=== PATIENT | male | born 1950 | race Caucasian/White ===

== ENCOUNTER 2022-08-28 12:01 | Emergency (ER) | payer OTHER, SELFPAY ==
--- NOTE | 2022-08-28 13:05 | EDPHYS ---
Physician Documentation [facility] Name: Edilberto Diaz Age: 71 yrs Sex: Male : 1950 Arrival Date: 08/28/2022 Time: 12:01 Bed 17 Private MD: ED Physician Gallito Rocha HPI: 08/28 13:15 This 71 yrs old Male presents to ER via Wheelchair with complaints of Constipation. kb 13:15 Patient presents for constipation. Last bowel movement 1 week ago. States this happens kb frequently and he has had to come in for disimpaction's in the past. Reports he feels like he needs to go but has been trying for the last few hours and has not been able to have a bowel movement.. Onset: The symptoms/episode began/occurred last week. Severity of symptoms: At their worst the symptoms were moderate in the emergency department the symptoms are unchanged. The patient has experienced similar episodes in the past. The patient has not recently seen a physician. Historical: - Immunization history:: Adult Immunizations unknown. - Social history:: Smoking status: unknown. ROS: 13:15 Constitutional: Negative for fever, chills, and weight loss. kb 13:15 Abdomen/GI: Positive for constipation. 13:15 All other systems are negative. Exam: 13:15 Constitutional: This is a well developed, well nourished patient who is awake, alert, kb and in no acute distress. Head/Face: Normocephalic, atraumatic. ENT: Moist Mucous membranes Cardiovascular: Regular rate and rhythm with a normal S1 and S2. No gallops, murmurs, or rubs. No pulse deficits. Respiratory: Respirations even and unlabored. No increased work of breathing. Talking in full sentences Abdomen/GI: Soft, non-tender. No distention Skin: Warm, dry with normal turgor. Normal color. MS/ Extremity: Pulses equal, no cyanosis. Neurovascular intact. Full, normal range of motion. Neuro: Awake and alert, GCS 15, oriented to person, place, time, and situation. Moves all extremities. Normal gait. Vital Signs: 16:00 BP 130 / 70; Pulse 69; Resp 16; Pulse Ox 97% on R/A; iw 16:37 BP 133 / 75; Pulse 71; Resp 16; Temp 98.1; Pulse Ox 100% on R/A; iw MDM: 12:13 Patient medically screened. kb 13:16 Differential Diagnosis Fecal impaction, constipation, bowel obstruction. Data reviewed: kb vital signs, nurses notes. Test considered but Not performed: CT: CT abdomen considered but patient request to go home after having a successful bowel movement.. Historians other than the Patient: Daughter/Son: Daughter. Counseling: I had a detailed discussion with the patient and/or guardian regarding: the historical points, exam findings, and any diagnostic results supporting the discharge/admit diagnosis, the need for outpatient follow up, a family practitioner, to return to the emergency department if symptoms worsen or persist or if there are any questions or concerns that arise at home. ED course: Patient was able to have a large bowel movement once he got into the room and now request to go home. States he does not want anything else done at this time.. 15:57 ED course: Patient came back to the ER for pain in the rectum. On exam patient has a kb large hard ball of stool at rectum. Digital disimpaction completed with large amounts of stool removed. Rectum with erythema and irritation. No hemorrhoids noted. No abscess felt. Enema ordered as well per family's request.. 17:39 ED course: Pt reported he was ready to go home after second enema, but once he was up kb and dressed reported pressure in his rectum again. CT scan ordered. 17:48 ED course: Pt refuses CT scan and would rather go home. Daughter in agreement. Pt kb ambulated out of ED with walker. Administered Medications: 16:00 Drug: Fleet Enema NM 133 ml Route: NM; iw Disposition Summary: 08/28/22 17:48 Discharge Ordered Location: Home(08/28/22 17:48) Condition: Stable(08/28/22 17:48) kb Diagnosis - Fecal impaction kb Followup: kb - With: Emergency Department - When: As needed - Reason: Worsening of condition Followup: kb - With: Private Physician - When: 2 - 3 days - Reason: Recheck today's complaints, Continuance of care, Re-evaluation by your physician Discharge Instructions: - Discharge Summary Sheet kb - Fecal Impaction kb Forms: - Medication Reconciliation Form kb - Thank You Letter kb - Antibiotic Education kb - Prescription Opioid Use kb - Patient Portal Instructions kb Signatures: Dispatcher [employer] EDMS Eran, Noni, SIGNALLING AND COMMUNICATIONS ENGINEER-C SIGNALLING AND COMMUNICATIONS ENGINEER-Karla Kerr, RN DMITRY iw Zahira Harvey RN RN jl7 Corrections: (The following items were deleted from the chart) 13: 13:28 Allergies: NKDA; jl7 jl7 15: 13:04 Home kb kb 15: 13:04 Stable kb kb : 13:04 Constipation kb kb
--- NOTE | 2022-08-28 13:05 | ER ---
Nurse's Notes [facility] Name: Edilberto Diaz Age: 71 yrs Sex: Male : 1950 Arrival Date: 08/28/2022 Time: 12:01 Bed 17 Private MD: Diagnosis: Fecal impaction Presentation: 08/28 12:18 Chief complaint: Patient's son or daughter states: has been trying to have a BM for the iw past 4 hours. Coronavirus screen: At this time, the client does not indicate any symptoms associated with coronavirus-19. Ebola Screen: Patient negative for fever greater than or equal to 101.5 degrees Fahrenheit, and additional compatible Ebola Virus Disease symptoms Patient denies exposure to infectious person. Patient denies travel to an Ebola-affected area in the 21 days before illness onset. No symptoms or risks identified at this time. Initial Sepsis Screen: Does the patient meet any 2 criteria? No. Patient's initial sepsis screen is negative. Does the patient have a suspected source of infection? No. Patient's initial sepsis screen is negative. Risk Assessment: Do you want to hurt yourself or someone else? Patient reports no desire to harm self or others. Onset of symptoms was August 28, 2022. 12:18 Method Of Arrival: Wheelchair iw 12:18 Acuity: DAVID 3 iw Triage Assessment: 16:38 General: Appears in no apparent distress. Behavior is calm, cooperative. Pain: iw Complains of pain in rectum. GI: Reports constipation. Historical: - Immunization history:: Adult Immunizations unknown. - Social history:: Smoking status: unknown. Screenin:29 [facility] ED Fall Risk Assessment (Adult) History of falling in the last 3 months, jl7 including since admission No falls in past 3 months (0 pts) Confusion or Disorientation No (0 pts) Intoxicated or Sedated No (0 pts) Impaired Gait Yes (1 pt) Mobility Assist Device Used Yes (1 pt) Altered Elimination No (0 pt) Score/Fall Risk Level 0 - 2 = Low Risk Oriented to surroundings, Maintained a safe environment. Abuse screen: Denies threats or abuse. Denies injuries from another. Nutritional screening: No deficits noted. Tuberculosis screening: No symptoms or risk factors identified. Assessment: 13:30 General: Pt had BM on arrival to ED. jl7 15:40 Reassessment: pt brought back to ER, family states he is still having a hard time going iw and has pain, requesting to have an enema and suppository stool softener. 16:00 Reassessment: placed in left lateral position, fleets enema given. iw 16:38 Reassessment: pt assisted to bedside commode. iw 16:39 Pain: Denies pain. GI: Bowel sounds present X 4 quads. Abd is soft and non tender X 4 iw quads. Vital Signs: 16:00 BP 130 / 70; Pulse 69; Resp 16; Pulse Ox 97% on R/A; iw 16:37 BP 133 / 75; Pulse 71; Resp 16; Temp 98.1; Pulse Ox 100% on R/A; iw ED Course: 12:03 Patient arrived in ED. ts1 12:06 Zahira Harvey, RN is Primary Nurse. jl7 12:13 Noni Barillas FNP-C [facility]. kb 12:13 Gallito Rocha MD is Attending Physician. kb 12:18 Triage completed. iw 12:18 Arm band placed on. iw 13:29 Patient has correct armband on for positive identification. Provided Education on: jl7 Discharge. 13:29 No provider procedures requiring assistance completed. Patient did not have IV access jl7 during this emergency room visit. Administered Medications: 16:00 Drug: Fleet Enema IN 133 ml Route: IN; iw Medication: 13:29 VIS not applicable for this client. jl7 Outcome: 13:04 Discharge ordered by MD. kb 13:29 Discharged to home ambulatory, with family. jl7 13:29 Condition: stable 13:29 Discharge instructions given to patient, family, Instructed on discharge instructions, follow up and referral plans. Demonstrated understanding of instructions, follow-up care. 13:30 Patient left the ED. jl7 17:48 Discharge ordered by MD. kb 17:51 Patient left the ED. 3 Signatures: Noni Barillas FNP-C FNP-Karla Kerr RN RN iw Zahira Harvey RN RN jl7 Hilda Durbin RN RN eh3 Indira Ray PAS PAS ts1 Corrections: (The following items were deleted from the chart) 13:28 13:28 Allergies: NKDA; jl7 jl7
[2022-08-28] MEDS ORDERED: FLEET ENEMA ADULT PR ONE ×2 (16:02→17:23)
[2022-08-28 17:55] VITALS: BP 133/75; TEMP 98.1; O2SAT 100
== END 2022-08-28 17:51 | disposition home or self-care (01) ==
LOC: ER 12:01
DX: K56.41 Fecal impaction (principal)
CPT/HCPCS: 99283